=== PATIENT | male | born 1990 | race African-American/Black ===

== ENCOUNTER 2016-11-13 16:25 | Emergency (ER) | payer SELFPAY ==
[2013-03-05 11:11] VITALS: BMI 22.0
[~2016-11-13 16:25] MED LIST: ZOVIRAX800 MG PO
== END 2016-11-13 19:09 | disposition home or self-care (01) ==
LOC: D.ER 16:25
DX: S62.306A Unspecified fracture of fifth metacarpal bone, right hand, initial encounter for closed fracture (principal); Y93.67 Activity, basketball; F17.200 Nicotine dependence, unspecified, uncomplicated

== ENCOUNTER 2016-11-28 09:14 | Day surgery (SDC) | payer MEDICAID ==
[~2016-11-28] VITALS: Ht 172.7 cm; Wt 73.0 kg
--- NOTE | ~2016-11-28 | OP ---
PATIENT NAME: IGLESIA GLASER JR MEDICAL RECORD: [id number] :88 LOCATION:D[facility] ADMISSION DATE: SURGEON: RISHI BARCENAS DO DATE OF OPERATION: 11/28/2016 PROCEDURE PERFORMED: Right hamate open reduction internal fixation and right fourth and fifth metacarpal reduction with bridge plating. PPEOPERATIVE DIAGNOSIS: Right fifth metacarpal dislocation. POSTOPERATIVE DIAGNOSIS: Right fourth and fifth metacarpal dislocation at the base and hamate fracture. INDICATION: Mr. Glaser is a 26-year-old right handed male who presented to my office 2 weeks after suffering a basketball injury where he injured his hand. He did get x-rays and revealed of what appeared to be a dislocation of the fifth metacarpal at the carpometacarpal joint. He was in a splint and was finally seen in the office yesterday and has been scheduled for today and he said he wanted to have it fixed. Risks and benefits of procedure were discussed with the patient and he consented to the procedure. SURGEON: Rishi Barcenas DO DESCRIPTION OF PROCEDURE: The patient was taken to the operative suite and after a block from anesthesia, placed in the supine position, placed on the OR table and sedated by anesthesia. A timeout was performed and all parties were in agreement this was the correct patient, correct procedure and correct side. The patient was given a gram of Ancef preoperatively. He has been prepped and draped in sterile fashion. At that time, the incision was marked out between the fourth and fifth metacarpal bases extending into the carpal bones. An Esmarch was placed on the ____ to exsanguinate the right arm and it was inflated to 250 mmHg. After Esmarch was removed, incision was carefully dissected down to the base of the fourth and fifth metacarpals, seen that they were dislocated and then it was noted that the hamate fracture was in quite a large piece and that the top piece has subluxed more proximal. The hamate was then reduced and secured with a K-wire and ____ screws were placed into the hamate fracture, one of them being removed then a bridge plate was placed over. Once the reduction maneuver was performed with fourth and fifth metacarpals and the hamate, the bridge plate was placed into the fourth metacarpal shaft and into the more proximal piece of the hamate. It was not fractured. With this done, the tourniquet was let down. All the screws were confirmed by x-ray. Tourniquet was let down at 52 minutes and the wound was irrigated and then closed with 5-0 Monocryl in an inverted interrupted fashion. Adaptic, 4 x 4 and Webril was placed over that site and a 4-inch Ortho-Glass splint was placed in an ulnar gutter fashion leaving the fingers free, so he can move them, was placed over the ulnar side of the wrist with approximately 15 degrees of extension. The patient was awakened with minimal blood loss in the OR and taken to PACU for recovery. TRANSINT:[id number] Voice Confirmation ID: [id number] DOCUMENT ID: [id number] OPERATIVE REPORT [id number] IGLESIA GLASER JR, MICHAEL D, DO CC: [id number] DICTATION DATE: 11/28/16 1357 FILTER WASHER: 11/28/16 1846 [facility] 11/28/16 [place] [id number] [place] [address]
[2016-11-28 09:56] VITALS: BP 132/65; Ht 172.7 cm; Wt 73.0 kg
[2016-11-28] MEDS ORDERED: HYDROCODONE-APA1 TAB PO (10:08)
[2016-11-28] MEDS ORDERED: VOLTAREN75 MG PO (10:09)
[2016-11-28] MEDS ORDERED: PERCOCET 5-3251 TAB PO (13:50)
[2016-11-28] MEDS ORDERED: DURICEF500 MG PO (13:50)
--- NOTE | 2016-11-28 13:58 | NUR ---
SUPRA CLAVICULAR BLOOCK FOR PROCEEDURE
== END 2016-11-28 15:05 | disposition home or self-care (01) ==
LOC: D.OPS 09:14 → D.PAN 11:45 → D.OPS 15:05
DX: S62.144A Nondisplaced fracture of body of hamate [unciform] bone, right wrist, initial encounter for closed fracture (principal); X58.XXXA Exposure to other specified factors, initial encounter; Z01.810 Encounter for preprocedural cardiovascular examination; Z01.811 Encounter for preprocedural respiratory examination; Z01.812 Encounter for preprocedural laboratory examination; S63.064A Dislocation of metacarpal (bone), proximal end of right hand, initial encounter